=== PATIENT | female | born 1985 | race Caucasian/White ===

== ENCOUNTER 2017-10-07 16:47 | Emergency (ER) | payer BC, SELFPAY ==
[2017-10-07 16:48] VITALS: BP 142/80; PULSE 84; RESP 18; TEMP 37; O2SAT 100; BMI 33.9
[2017-10-07 18:10] VITALS: BP 141/93; PULSE 97; RESP 20; TEMP 36.9; O2SAT 100; BMI 33.9
[2017-10-07 18:10] LABS: Apearance,Urine Clear (Clear); Bilirubin,Urine Negative (Negative); Blood, Urine Negative (Negative); Color,Urine Yellow (Yellow); Glucose,Urine (UA) Negative (Negative); Ketones,Urine Negative (Negative); PH,Urine 6.5 (5.0-8.5); Protein,Urine Negative (Negative); Specific Gravity, Urine 1.005 (1.005-1.030); UTC Leukocyte Esterase,Urine Negative (Negative); UTC Nitrate,Urine Negative (Negative); UTC Pregnancy Test, Urine Negative (Negative); Urobilinogen,Urine 0.2 EU/dl (0.2)
--- NOTE | 2017-10-07 19:26 | HMH.EDUTC ---
[facility] [place] Disposition Clinical Impression: Abdominal pain Qualifiers: Abdominal location: unspecified location Qualified Code(s): R10.9 - Unspecified abdominal pain Disposition: Still a Patient Condition on Discharge: Good Time of Disposition: 19:27 (transfer to ER) Medical Decision Making Vital Signs: 10/07/17 18:10 Temperature 98.4 F Temperature Source Temporal Artery Scan Pulse Rate [Right Brachial] 97 H Respiratory Rate 20 Blood Pressure [Right Arm] 141/93 Blood Pressure Mean [Right Arm] 109 Blood Pressure Source [Right Arm] Automatic Cuff Blood Pressure Position [Right Arm] Sitting 02 Sat by Pulse Oximetry 100 Oxygen Delivery Method Room Air - Lab Data Lab results reviewed: Yes: I reviewed the patient's lab results. Lab Results 10/07/17 18:03: Urine Color Yellow, Urine Appearance Clear, Urine pH 6.5, Ur Specific [place] 1.005, Urine Protein Negative, Urine Glucose (UA) Negative, Urine Ketones Negative, Urine Blood Negative, Urine Nitrate Negative, Urine Bilirubin Negative, Urine Urobilinogen 0.2, Ur Leukocyte Esterase Negative, [facility] Negative - Physician Consults Physician Consulted: Dr. Cuellar, ER MD Time: 18:00 Reason -: Pt condition Comment/Response: Discussed HPI, exam, results. transfer to ER for further evaluation. Discussed with patient. Pt agreeable to transfer. - Alan Inquiry Pt receiving controlled substance: No [facility] [place] HPI - General Stated complaint: abd pain Time Seen by Provider: 10/07/17 19:00 Mode of Arrival: Family Vehicle Source of Information: Patient Limitations: No Limitations Description of Symptoms (Recalled from Triage Doc. by RN): LOWER ABDOMINAL PAIN FOR 3 DAYS. HEENT Symptoms (Recalled from RN notes): No Resp Symptoms (Recalled from RN notes): No Skin Symptoms (Recalled from RN notes): No MS Symptoms (Recalled from RN notes): No Functional Status (Recalled from RN notes): NA - History of Present Illness Provider Complaint: c/o lower abdominal pain starting day before yesterday. Described as intermittent every 30 minutes or so , sharp/stabbing, worse when sitting becomes constant after sitting too long , better when standing. No fever, n/v/d. initially didn't know cause but then while waiting, recalls she fell through attic floor/home ceiling 1.5 weeks ago. Went through and caught herself w/ her arms therefore, avoided landing on anything. Someone helped her pull back through to attic. Immediate pain left rib. just felt sore . No abdominal pain. Went to gym this evening hoping to work this out and pain only got worse. LMP first of this month. normal. Start control in June and light since then. - Related Data Home Medications Medication Instructions Recorded Confirmed Norethindrone-E.estradiol-Iron 1 mg PO DAILY 10/07/17 10/07/17 [Blisovi 24 Fe Tablet] Allergies Allergy/AdvReac Type Severity Reaction Status Date / Time amoxicillin Allergy Mild Verified 10/07/17 18:15 - Worker's Comp Is this a Worker's Comp case?: No [facility] History I have reviewed the patient's past medical history: Yes (denies PMHx) Other Surgeries: Yes: Other (wisdom teeth) - *Social History Smoking Status: Never smoker Alcohol Intake: never - Psychiatric History Expresses thoughts of harming self/others: None Suicide Plan Description: No Plan ROS Obtained: Yes Systems reviewed as appropriate & no additional complaints - Constitutional Constitutional: Reports as per HPI - Cardiovascular Cardiovascular: Denies chest pain, Denies irregular heart rhythm, Denies leg edema - Respiratory Respiratory: No dyspnea - Gastrointestinal Gastrointestingal: Reports: as per HPI, change in stool character (softer since starting new diet weeks ago, LBM this morning) - Genitourinary Female Genitourinary: Denies abnormal menses, Denies difficulty voiding, Denies painful intercourse, Denies dysuria, Reports flank pain (left side), Denies hematuria, Richard
--- NOTE | 2017-10-07 19:32 | ED_ITS ---
[facility] [place] Disposition Clinical Impression: Abdominal pain Qualifiers: Abdominal location: unspecified location Qualified Code(s): R10.9 - Unspecified abdominal pain Disposition: Still a Patient Condition on Discharge: Good Time of Disposition: 19:27 (transfer to ER) Medical Decision Making Vital Signs: 10/07/17 18:10 Temperature 98.4 F Temperature Source Temporal Artery Scan Pulse Rate [Right Brachial] 97 H Respiratory Rate 20 Blood Pressure [Right Arm] 141/93 Blood Pressure Mean [Right Arm] 109 Blood Pressure Source [Right Arm] Automatic Cuff Blood Pressure Position [Right Arm] Sitting 02 Sat by Pulse Oximetry 100 Oxygen Delivery Method Room Air - Lab Data Lab results reviewed: Yes: I reviewed the patient's lab results. Lab Results 10/07/17 18:03: Urine Color Yellow, Urine Appearance Clear, Urine pH 6.5, Ur Specific [place] 1.005, Urine Protein Negative, Urine Glucose (UA) Negative, Urine Ketones Negative, Urine Blood Negative, Urine Nitrate Negative, Urine Bilirubin Negative, Urine Urobilinogen 0.2, Ur Leukocyte Esterase Negative, [facility] Clinic Negative - Physician Consults Physician Consulted: Dr. Cuellar, ER MD Time: 18:00 Reason -: Pt condition Comment/Response: Discussed HPI, exam, results. transfer to ER for further evaluation. Discussed with patient. Pt agreeable to transfer. - Alan Inquiry Pt receiving controlled substance: No [facility] [place] HPI - General Stated complaint: abd pain Time Seen by Provider: 10/07/17 19:00 Mode of Arrival: Family Vehicle Source of Information: Patient Limitations: No Limitations Description of Symptoms (Recalled from Triage Doc. by RN): LOWER ABDOMINAL PAIN FOR 3 DAYS. HEENT Symptoms (Recalled from RN notes): No Resp Symptoms (Recalled from RN notes): No Skin Symptoms (Recalled from RN notes): No MS Symptoms (Recalled from RN notes): No Functional Status (Recalled from RN notes): NA - History of Present Illness Provider Complaint: c/o lower abdominal pain starting day before yesterday. Described as intermittent every 30 minutes or so , sharp/stabbing, worse when sitting becomes constant after sitting too long , better when standing. No fever, n/v/d. initially didn't know cause but then while waiting, recalls she fell through attic floor/home ceiling 1.5 weeks ago. Went through and caught herself w/ her arms therefore, avoided landing on anything. Someone helped her pull back through to attic. Immediate pain left rib. just felt sore . No abdominal pain. Went to gym this evening hoping to work this out and pain only got worse. LMP first of this month. normal. Start control in June and light since then. - Related Data Home Medications Medication Instructions Recorded Confirmed Norethindrone-E.estradiol-Iron 1 mg PO DAILY 10/07/17 10/07/17 [Blisovi 24 Fe Tablet] Allergies Allergy/AdvReac Type Severity Reaction Status Date / Time amoxicillin Allergy Mild Verified 10/07/17 18:15 - Worker's Comp Is this a Worker's Comp case?: No [facility] History I have reviewed the patient's past medical history: Yes (denies PMHx) Other Surgeries: Yes: Other (wisdom teeth) - *Social History Smoking Status: Never smoker Alcohol Intake: never - Psychiatric History Expresses thoughts of harming self/others: None Suicide Plan Description: No Plan ROS Obtained: Yes Systems
--- NOTE | 2017-10-07 21:05 | CT_ITS ---
CT abdomen pelvis w con CLINICAL INDICATION: Left upper quadrant pain and tenderness with recent trauma ITS.REASON: LUQ ABD TRAUMA ORDERING PHYSICIAN: Siva Brown MD PATIENT AGE: 32 years COMPARISON: None TECHNIQUE: Axial images obtained with sagittal and coronal reformats. PROCEDURE: Oral Contrast: None IV Contrast: 75 mL Isovue-370. FINDINGS: No acute finding lower chest. The liver, gallbladder, pancreas, adrenal glands, spleen, kidneys, ureters, and urinary bladder have an unremarkable appearance. No evidence of free fluid, intestinal obstruction, or free air. Unremarkable appendix. There are bilateral ovarian cyst measuring up to 3 cm on the left 0.8 cm on the right. No acute bony anomalies. There is moderate lower thoracic scoliosis convex right and mild lumbar scoliosis convex left. IMPRESSION: 1. No acute abdominal or pelvic findings. 2. Bilateral ovarian cysts. 3. Thoracolumbar scoliosis.
[2017-10-07 21:12] LABS: Basophils # 0.1 K/mm3 (0-0.2); Basophils % 0.6 % (0.1-2.0); Eosinophils # 0.2 K/mm3 (0.0-0.4); Eosinophils % 2.2 % (0.1-12.0); Hematocrit 41.6 % (37.0-47.0); Hemoglobin 13.7 g/dL (12.2-16.2); Lymphocytes # 2.6 K/mm3 (0.7-4.5); Lymphocytes % 26.1 K/mm3 (10-50); Mean Corpuscular HGB Conc 32.9 g/dL (31.8-35.4); Mean Corpuscular Hemoglobin 28.3 pg (27.0-31.2); Mean Corpuscular Volume 86.1 fl (81-99); Mean Platelet Volume 9.2 fl (7.4-10.4); Monocytes # 0.5 K/mm3 (0.1-1.0); Monocytes % 4.9 % (1.7-9.3); Neutrophils # 6.6 K/mm3 (1.8-7.8); Neutrophils % 66.2 % (37.0-80.0); Platelet Count 258 K/mm3 (142-424); Red Blood Count 4.83 M/mm3 (4.20-5.40); Red Cell Distribution Width 13.4 % (11.5-17.5); White Blood Count 9.9 K/mm3 (4.8-10.8)
[2017-10-07 21:19] LABS: Alanine Aminotransferase 41 U/L (12-78); Albumin Level 3.8 gm/dL (3.4-5.0); Alkaline Phosphatase 90 U/L (46-116); Amylase 65 U/L (25-125); Anion Gap 12.5 mEq/L (5-15); Aspartate Amino Transferase 20 U/L (15-37); Bilirubin,Total 0.8 mg/dL (0.2-1.0); Blood Urea Nitrogen 10 mg/dL (7-18); Calcium 8.8 mg/dL (8.5-10.1); Carbon Dioxide 26 mmol/L (21.0-32.0); Chloride 103 mmol/L (98-107); Creatinine Clearance Estimated 153 mL/min (0-300); Estimated Glomerular Filt Rate 84 ml/min (>60); GFR (African American) 101 ML/MIN (>60); Globulin 3.9 gm/dl (1.3-3.2); Glucose 86 mg/dL (74-106); Lipase 166 u/L (73-393); Potassium 3.5 mmoL/L (3.5-5.1); Sodium 138 mmol/L (136-145); Total Protein,Serum 7.7 gm/dL (6.4-8.2)
--- NOTE | 2017-10-07 22:14 | HMH.EDGENADL ---
ED Disposition Clinical Impression: Left ovarian cyst Abdominal pain Qualifiers: Abdominal location: unspecified location Qualified Code(s): R10.9 - Unspecified abdominal pain Disposition: Home, Self-Care Condition on Discharge: Good Instructions: DI for Ovarian Cyst, DI for Contusion Prescriptions: Etodolac [Etodolac 200mg Cap] 200 mg PO TID PRN #20 cap PRN Reason: moderate Time of Disposition: 22:28 - Critical Care Critical Care Time: No Attestation: On 10/07/17, the high probability of a clinically significant, sudden or life threatening deterioration of the following system(s) required my full and direct attention, intervention and personal management. The time I documented below is in addition to time spent performing reported procedures but includes the following listed in this critical care notation. Medical Decision Making - Medical Records Medical records reviewed: Yes: I reviewed the patient's medical records. Vital Signs: 10/07/17 16:48 10/07/17 18:10 Temperature 98.6 F 98.4 F Temperature Source Oral Temporal Artery Scan Pulse Rate [Right Brachial] 84 97 H Respiratory Rate 18 20 Blood Pressure [Right Arm] 142/80 141/93 Blood Pressure Mean [Right Arm] 100 109 Blood Pressure Source [Right Arm] Automatic Cuff Automatic Cuff Blood Pressure Position [Right Arm] Sitting Sitting 02 Sat by Pulse Oximetry 100 100 Oxygen Delivery Method Room Air Room Air - Lab Data Lab results reviewed: Yes: I reviewed the patient's lab results. Lab Results 10/07/17 18:03: Urine Color Yellow, Urine Appearance Clear, Urine pH 6.5, Ur Specific [place] 1.005, Urine Protein Negative, Urine Glucose (UA) Negative, Urine Ketones Negative, Urine Blood Negative, Urine Nitrate Negative, Urine Bilirubin Negative, Urine Urobilinogen 0.2, Ur Leukocyte Esterase Negative, T[facility] Clinic Negative 10/07/17 21:00: WBC 9.9, RBC 4.83, Hgb 13.7, Hct 41.6, MCV 86.1, MCH 28.3, MCHC 32.9, RDW 13.4, Plt Count 258, MPV 9.2, Neut % (Auto) 66.2, Lymph % (Auto) 26.1, [place] % (Auto) 4.9, Eos % (Auto) 2.2, Baso % (Auto) 0.6, Neut # (Auto) 6.6, Lymph # (Auto) 2.6, [place] # (Auto) 0.5, Eos # (Auto) 0.2, Baso # (Auto) 0.1 10/07/17 21:00: Sodium 138, Potassium 3.5, Chloride 103, Carbon Dioxide 26, Anion Gap 12.5, BUN 10, Creatinine 0.80, Estimated Creat Clear 153, Estimated GFR 84, Est GFR ( Amer) 101, Glucose 86, Calcium 8.8, Total Bilirubin 0.8, AST 20, ALT 41, Alkaline Phosphatase 90, Total Protein 7.7, Albumin 3.8, Globulin 3.9 H, Albumin/Globulin Ratio 1.0 L, Amylase 65, Lipase 166 Result diagrams: 10/07/17 21:00 10/07/17 21:00 Orders (Tests/Meds): ED MEDICATIONS Discontinued Medications Generic Name Dose Route Start Last Admin Trade Name Freq PRN Reason Stop Dose Admin Lactated Ringer's 1,000 mls @ 999 mls/hr 10/07/17 21:00 10/07/17 21:08 Lactated Ringer's 1000 Ml Bag IV 10/07/17 22:00 999 mls/hr .Q1H1M VIVI Administration Iopamidol 75 ml 10/07/17 21:28 10/07/17 21:31 [id number]; 75ml Vial IV 10/07/17 21:29 75 ml ONCE ONE Administration Sodium Chloride 10 ml 10/07/17 21:33 10/07/17 21:34 Rad-Saline Flush 10ml Syringe IV 10/07/17 21:34 10 ml ONCE ONE Administration Tramadol HCl 1 terrence 10/07/17 22:38 10/07/17 22:47 Ultram Take Home Pack 50mg (10) PO 10/07/17 22:39 1 terrence ONCE ONE Administration - CT Data CT Scan: Abdomen, Pelvis Time Received: 22:[address] Reviewed: Yes: I have viewed the radiologist's interpretation Preliminary Findings: Normal/NAD Findings Narrative: Please refer to the radiologist's written report - Alan Inquiry Pt receiving controlled substance: No - Reevaluation(s) Time: 22:10 Reevaluation #1: Upon re-evaluation the patient appears medically stable, no acute distress. Advised patient to follow-up with her PCP as well as hospital ward clerk per discharge instructions. General Adult HPI - General Chief complaint: PAIN Stated complaint
== END 2017-10-07 22:51 | disposition home or self-care (01) ==
LOC: UTC 19:32 → ER 19:34
PROVIDERS: Nurse Practitioner Family; Emergency Provider Emergency Medicine
DX: N83.202 Unspecified ovarian cyst, left side (principal); R10.9 Unspecified abdominal pain
CPT/HCPCS: 74177; 80053; 81003; 81025; 82150; 83690; 85025; 96365; 99284; Q9967

== ENCOUNTER 2020-05-23 16:00 | Outpatient (RCR) | payer OTHER, SELFPAY | END 2020-06-05 12:00 | disposition home or self-care (01) | LOC: PT.CARL 16:00 | PROVIDERS: Visit Provider Orthopaedic Surgery | DX: M25.361 Other instability, right knee (principal) | CPT/HCPCS: 97010; 97014; 97033; 97110; 97140; 97163; G0283 ==

== ENCOUNTER 2020-07-22 16:00 | Outpatient (RCR) | payer OTHER, SELFPAY | END 2020-07-22 17:00 | disposition home or self-care (01) | LOC: PT.CARL 16:00 | PROVIDERS: Visit Provider Family Medicine Sports Medicine | DX: M25.561 Pain in right knee (principal) | CPT/HCPCS: 97010; 97014; 97110; 97163; G0283 ==

== ENCOUNTER 2021-08-13 07:59 | Outpatient (CLI) | payer OTHER, SELFPAY ==
[2021-08-13] VITALS (8 sets, daily range): BP systolic 110–133; BP diastolic 71–89; PULSE 68–91; RESP 16; TEMP 37.7; O2SAT 96–98
== END 2021-08-13 10:21 | disposition home or self-care (01) ==
LOC: INF 08:00
PROVIDERS: PCP Internal Medicine Adolescent Medicine; Visit Provider Internal Medicine Adolescent Medicine
DX: U07.1 COVID-19 (principal); Z23 Encounter for immunization
CPT/HCPCS: 96365

== ENCOUNTER 2022-03-17 20:57 | Emergency (ER) | payer OTHER, SELFPAY ==
[2022-03-17 20:58] VITALS: BP 149/93; PULSE 80; RESP 18; TEMP 37.1; O2SAT 100; BMI 32.3
--- NOTE | 2022-03-17 21:15 | XR_ITS ---
PROCEDURE INFORMATION: Exam: XR Right Knee Exam date and time: 03/17/2022 9:17 PM Age: 36 years old Clinical indication: Pain; Knee; Right; Additional info: Injury TECHNIQUE: Imaging protocol: Radiologic exam of the Right knee. Views: 3 views. COMPARISON: No relevant prior studies available. FINDINGS: Bones/joints: No evidence of acute fracture or dislocation. No erosive disease. No significant degenerative change. No joint effusion. Soft tissues: Normal. IMPRESSION: Normal exam.
--- NOTE | 2022-03-17 21:22 | HMH.EDLOEX ---
ED Disposition Clinical Impression: Right knee injury Qualifiers: Encounter type: initial encounter Qualified Code(s): S89.91XA - Unspecified injury of right lower leg, initial encounter Disposition: Home, Self-Care Condition on Discharge: Good Instructions: DI for Knee Pain Additional Instructions: ice and wt bearing as aniyah and see pcp -nsaif also Referrals: Geoff Grace MD [Primary Care Provider] - - Critical Care Critical Care Time: No Attestation: On 03/17/22, the high probability of a clinically significant, sudden or life threatening deterioration of the following system(s) required my full and direct attention, intervention and personal management. The time I documented below is in addition to time spent performing reported procedures but includes the following listed in this critical care notation. Medical Decision Making - Medical Records Medical records reviewed: Yes: I reviewed the patient's medical records. - Alan Inquiry Pt receiving controlled substance: No Vital Signs: 03/17/22 20:58 Temperature 98.7 F Temperature Source Oral Pulse Rate [Left] 80 Respiratory Rate 18 Blood Pressure [Right Arm] 149/93 H Blood Pressure Mean [Right Arm] 111 02 Sat by Pulse Oximetry 100 Oxygen Delivery Method Room Air - Lab Data Lab results reviewed: Yes: I reviewed the patient's lab results. Orders (Tests/Meds): ED MEDICATIONS Discontinued Medications Generic Name Dose Route Start Last Admin Trade Name Freq PRN Reason Stop Dose Admin Hydrocodone Bitart/Acetaminophen 1 tab 03/17/22 21:16 03/17/22 21:17 Hydrocodone/Apap 5/325 Mg Tablet PO 03/17/22 21:17 1 tab ONCE ONE Administration Ibuprofen 800 mg 03/17/22 21:36 03/17/22 21:37 Ibuprofen 400 Mg Tablet PO 03/17/22 21:37 800 mg ONCE ONE Administration - Radiology Data #1 Image(s): Knee Image Reviewed: Yes I have reviewed radiologist's interpretation Preliminary Findings: No Fracture Seen Medical Decision Narrative: acute injury rt knee with stable exam and xrays Lower Extremity Injury HPI - General Chief Complaint: Extremity Injury, Lower Stated Complaint: AO 03/16@2029 FELL INJURED R KNEE Time Seen by Provider: 03/17/22 21:00 Mode of Arrival: Wheelchair Source of Information: Patient, Spouse, Medical Record Limitations: No Limitations Description of Symptoms (Recalled from ER Triage Doc. by RN): pt states to have been running bases at a softball game when her right knee gave out and she fell she is having pain and swelling in the left knee pt also has minor abrassions on her elbows left knee and left side of the forehead there is also a raised knot on the left side of the forehead pt doesnt want anything checked out at this time just the right knee as she has a hx of issues with it. - History of Present Illness HPI Narrative: acute fall with rt knee pain with swelling and dec wt bearing complaint: knee injury Onset (ago): hour(s) Injury: Right: knee Type of Injury: unknown Place: street/outdoors Severity: moderate Context: fall Associated symptoms: swelling, unable to bear weight Other symptoms: none - Related Data Home Medications Medication Instructions Recorded Confirmed norethindrone-e.estradioL-iron 1 mg PO DAILY 10/07/17 10/07/17 [Blisovi 24 Fe Tablet] Previous Rx's Medication Instructions Recorded Etodolac [Etodolac 200mg Cap] 200 mg PO TID PRN #20 cap 10/07/17 Allergies Allergy/AdvReac Type Severity Reaction Status Date / Time amoxicillin Allergy Mild Verified 10/07/17 20:50 [facility] History - Hepatitis A Screen Attestation statement:: This patient has been screened for Hepatitis A risk factors. I have reviewed the patient's past medical history: Yes Other Surgeries: Yes: Other (wisdom teeth) - Social History Smoking Status: Never smoker Alcohol Intake: never ROS Obtained: Yes All systems reviewed & no additional complaints - Constitutional
--- NOTE | 2022-03-17 21:24 | PC.NURSE ---
pt going to rad
--- NOTE | 2022-03-17 21:37 | PC.NURSE ---
Pt helped into bed, pillows and warm blankets placed under the right knee with an ice pack on top. Pt medicated per MAR. Advises she is more comfortable now
--- NOTE | 2022-03-17 21:55 | PC.NURSE ---
Pt given water and crackers at this time. No other needs.
[2022-03-17 22:15] VITALS: BP 128/70; PULSE 70; RESP 16; TEMP 36.8; O2SAT 98
== END 2022-03-17 22:15 | disposition home or self-care (01) ==
PROVIDERS: Emergency Provider Emergency Medicine; PCP Internal Medicine Adolescent Medicine
DX: S89.91XA Unspecified injury of right lower leg, initial encounter (principal); S80.212A Abrasion, left knee, initial encounter; S00.81XA Abrasion of other part of head, initial encounter; S50.312A Abrasion of left elbow, initial encounter; S50.311A Abrasion of right elbow, initial encounter; W01.0XXA Fall on same level from slipping, tripping and stumbling without subsequent striking against object, initial encounter; Y93.02 Activity, running; Y92.320 Baseball field as the place of occurrence of the external cause
CPT/HCPCS: 29505; 73562; 99283